=== PATIENT | female | born 1995 | race Caucasian/White ===

== ENCOUNTER 2017-04-15 15:41 | Emergency (ER) | payer OTHER ==
[~2017-04-15] VITALS: Ht 154.9 cm; Wt 48.9 kg
[2017-04-15 16:41] LABS: ADD MIUA? YES; BILIRUBIN NEGATIVE; BLOOD SMALL; COLOR YELLOW ((YELLOW)); GLUCOSE (STRIP) NEGATIVE; KETONES 20; LEUKOCYTES LARGE; NITRITE POSITIVE; PROTEIN (STRIP) 30; SPECIFIC GRAVITY 1.019 (1.000-1.030); UROBILINOGEN 0.2 MG/DL (0.2-1.0)
[2017-04-15] MEDS ORDERED: MACROBID100 MG PO (16:46)
[2017-04-15 16:59] VITALS: BP 121/79
[2017-04-15 17:01] LABS: BACTERIA 3+ /HPF; CASTS NONE SEEN /LPF; CRYSTALS NONE SEEN; EPITHELIAL CELLS 2+ /HPF; MUCUS TRACE /LPF; RED BLOOD CELLS 0-5 /HPF (0-5); UCUL ADDED? YES; WHITE BLOOD CELLS TNTC /HPF (0-5)
== END 2017-04-15 17:00 | disposition home or self-care (01) ==
LOC: EME 15:41
PROVIDERS: Physician Assistant Medical
DX: O23.42 Unspecified infection of urinary tract in pregnancy, second trimester (principal); Z3A.20 20 weeks gestation of pregnancy
CPT/HCPCS: 81003; 87077; 87086; 87186; 99281; 99283

== ENCOUNTER 2017-08-21 10:30 | Inpatient (IN) | payer OTHER ==
[~2017-08-21] VITALS: Ht 156.2 cm; Wt 61.7 kg
[2017-08-21] VITALS (12 sets, daily range): BP systolic 119–138; BP diastolic 68–85
[~2017-08-21 10:30] MED LIST: MACROBID100 MG PO
[2017-08-21 11:44] LABS: EOSINOPHIL (%) 0.3 % (0-5); HEMATOCRIT 31.8 % (36.0-46.0); IMMATURE GRANULOCYTE (%) 0.6 % (0.0-0.7); IMMATURE GRANULOCYTE COUNT 0.1 K/uL; INSTRUMENT ABS NEUTROPHIL CT 11.4 K/uL; LYMPHOCYTE COUNT 1.8 K/uL (1.0-2.8); MCH 21.9 PG (29.0-34.0); MCHC 30.8 G/DL (30.0-36.0); MEAN PLAT.VOLUME 10.9 uM^3 (9.5-12.4); MONOCYTE COUNT 1.2 K/uL (0-0.8); NEUTROPHIL (%) 78.3 % (45-76); NEUTROPHIL COUNT 11.4 K/uL (1.8-6.4); PLATELET COUNT 319 K/uL (156-360); RBC DIS.WIDTH-CV 16.1 % (11.8-14.6); RBC DIS.WIDTH-SD 41.3 % (39-53); RED BLOOD COUNT 4.48 M/uL (3.80-5.20); WHITE BLOOD COUNT 14.5 K/uL (4.1-10.2)
[2017-08-21] MEDS ORDERED: PRENATAL FORMU1 EAC4 PO (14:26)
[2017-08-22] VITALS (14 sets, daily range): BP systolic 112–149; BP diastolic 60–94
[2017-08-23 06:53] LABS: EOSINOPHIL (%) 0.6 % (0-5); EOSINOPHIL COUNT 0.1 K/uL (0-0.3); HEMATOCRIT 22.2 % (36.0-46.0); IMMATURE GRANULOCYTE (%) 0.7 % (0.0-0.7); IMMATURE GRANULOCYTE COUNT 0.1 K/uL; INSTRUMENT ABS NEUTROPHIL CT 10.3 K/uL; LYMPHOCYTE COUNT 3.9 K/uL (1.0-2.8); MCH 22.5 PG (29.0-34.0); MCHC 31.1 G/DL (30.0-36.0); MCV 72.3 FL (83-99); MEAN PLAT.VOLUME 11.1 uM^3 (9.5-12.4); MONOCYTE (%) 8.4 % (3-12); MONOCYTE COUNT 1.3 K/uL (0-0.8); NEUTROPHIL (%) 65.5 % (45-76); NEUTROPHIL COUNT 10.3 K/uL (1.8-6.4); PLATELET COUNT 283 K/uL (156-360); RBC DIS.WIDTH-CV 16.3 % (11.8-14.6); RBC DIS.WIDTH-SD 42.5 % (39-53); WHITE BLOOD COUNT 15.8 K/uL (4.1-10.2)
[2017-08-23 07:17] LABS: RED BLOOD COUNT 3.07 M/uL (3.80-5.20)
[2017-08-23 07:31] VITALS: BP 113/67
[2017-08-23 09:38] VITALS: BP 118/60
[2017-08-23 09:41] VITALS: BP 118/71
[2017-08-23 09:43] VITALS: BP 120/66
[2017-08-23 16:24] VITALS: BP 115/59
[2017-08-24 06:54] LABS: EOSINOPHIL (%) 1.1 % (0-5); EOSINOPHIL COUNT 0.2 K/uL (0-0.3); IMMATURE GRANULOCYTE COUNT 0.3 K/uL; INSTRUMENT ABS NEUTROPHIL CT 11.5 K/uL; LYMPHOCYTE COUNT 2.5 K/uL (1.0-2.8); MCV 73.2 FL (83-99); MEAN PLAT.VOLUME 10.2 uM^3 (9.5-12.4); MONOCYTE (%) 8.1 % (3-12); MONOCYTE COUNT 1.3 K/uL (0-0.8); NEUTROPHIL (%) 72.6 % (45-76); NEUTROPHIL COUNT 11.5 K/uL (1.8-6.4); NRBC (%) 0.2 /100 WBC (0-0); PLATELET COUNT 324 K/uL (156-360); RBC DIS.WIDTH-CV 16.5 % (11.8-14.6); RBC DIS.WIDTH-SD 42.6 % (39-53); RED BLOOD COUNT 3.28 M/uL (3.80-5.20); WHITE BLOOD COUNT 15.8 K/uL (4.1-10.2)
[2017-08-24] MEDS ORDERED: IBUPROFEN800 MG PO (11:32)
[2017-08-24] MEDS ORDERED: CAMILA0.35 MG PO (11:33)
[2017-08-24] MEDS ORDERED: MYFERON 150150 MG PO (11:34)
== END 2017-08-24 12:29 | disposition home or self-care (01) | DRG 775 ==
LOC: LDRP-OP → 2WEST 10:32 → LDRP-OP 09-19 08:56
PROVIDERS: Advanced Practice Midwife; Obstetrics & Gynecology
DX: O70.1 Second degree perineal laceration during delivery (principal); O99.02 Anemia complicating childbirth; D50.9 Iron deficiency anemia, unspecified; O99.824 Streptococcus B carrier state complicating childbirth; Z37.0 Single live birth; Z3A.40 40 weeks gestation of pregnancy; D62 Acute posthemorrhagic anemia; O66.0 Obstructed labor due to shoulder dystocia
CPT/HCPCS: 36600; 85025; G0378; J0595; J2540; J7120